=== PATIENT | male | born 1985 | race Caucasian/White ===

== ENCOUNTER 2020-02-20 23:17 | Emergency (ER) | payer MEDICAID, SELFPAY ==
[2020-02-20 23:18] VITALS: BP 154/110; PULSE 81; RESP 15; TEMP 36; O2SAT 100; BMI 29.2
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
[2020-02-20 23:56] LABS: Absolute Lymphocyte Count 3.13 X10^3/uL (0.83-4.51); Absolute Neutrophil Count 7.9 X10^3/uL (2.0-7.7); Basophil# 0.02 X10^3/uL; Basophil% 0.2 % (0-1); Eosinophil# 0.04 X10^3/uL; Eosinophils% 0.3 % (0-5); Hematocrit 46.8 % (40-54); Hemoglobin 15.6 g/dL (13.0-16.5); Lymphocyte # 3.13 X10^3/ul (4.0); Mean Corp Hgb Conc 33.3 g/dL (32-36); Mean Corpuscular Hgb 30.6 pg (27.0-32.0); Mean Corpuscular Volume 91.9 fL (80-94); Mean Platelet Vol. 9.6 fl (6.2-12.0); Monocyte# 0.89 X10^3/uL; Monocyte% 7.4 % (0-10); NRBC Flagged by Analyzer 0 % (0-5); Neutrophil # 7.91 X10^3/uL (2.7-7.7); Neutrophil % 65.7 % (47-70); Platelet Count 326 K/mm3 (150-450); RBC Distribution Width CV 12.3 % (11.6-14.6); Red Blood Count 5.09 M/mm3 (4.6-6.2)
[2020-02-21 00:02] LABS: Amphetamine Urine VISTA POSITIVE (<1000 ng/mL); Barbiturate Urine VISTA NEGATIVE (< 200 ng/mL); Benzodiazepine Urine VISTA NEGATIVE (< 200 ng/mL); Cocaine Urine VISTA NEGATIVE (< 300 ng/mL); Ecstacy Urine VISTA POSITIVE (< 500 ng/mL); Methadone Urine VISTA NEGATIVE (< 300 ng/mL); PCP Urine VISTA NEGATIVE (< 25 ng/mL); THC Urine VISTA NEGATIVE (< 50 ng/mL); Vista UDS pH Range 6
[2020-02-21 00:07] LABS: Alcohol, Blood (Medical)-Serum < 3.0 mg/dL
[2020-02-21 00:08] LABS: Anion Gap 6 (5-15); BUN 7 mg/dL (7-18); BUN/Creat Ratio 7.3 RATIO (10-20); Chloride 104 mmol/L (98-107); Creatinine, Serum 0.96 mg/dL (0.70-1.30); EST Glomerular Filtration Rate 95 mL/min (>60); Est Glom Filt Rate - Afr Amer 115 mL/min (>60); Estimated Creatinine Clearance 122.53 ml/min; Glucose 104 mg/dL (74-106); Potassium 3.3 mmol/L (3.5-5.1); Sodium Level 138 mmol/L (136-145)
--- NOTE | 2020-02-21 00:10 | ED.RN ---
CRISIS CALLED AT 12:10AM
[2020-02-21 01:18] VITALS: RESP 14
[2020-02-21 02:33] VITALS: RESP 16
--- NOTE | 2020-02-21 03:01 | ED.RN ---
[id number] THIS RN PAGED CRISIS AND INFORMED THEM THAT THE PT WAS DECLINED AT [facility]. MATT VERBALIZES UNDERSTANDING
[2020-02-21 03:03] VITALS: BP 143/94; PULSE 83; RESP 16; O2SAT 99
[2020-02-21 04:00] VITALS: RESP 18
[2020-02-21 05:07] VITALS: BP 143/84; PULSE 81; RESP 16; RESP 17; O2SAT 99
[2020-02-21 06:00] VITALS: RESP 16
== END 2020-02-21 07:47 ==
PROVIDERS: Emergency Provider Emergency Medicine
DX: R45.851 Suicidal ideations (principal)
CPT/HCPCS: 80048; 80307; 80320; 85025; 99285; G0480